=== PATIENT | female | born 1940 | race Caucasian/White ===

== ENCOUNTER 2022-09-06 10:38 | Emergency (ER) | payer OTHER ==
[~2022-09-06] VITALS: Ht 160 cm; Wt 63.5 kg
[2022-09-06 10:41] VITALS: BP_SYST 168
[2022-09-06] MEDS ORDERED: MORPHINE 4 MG INJ. 4 MG/ML VIAL IVP ONE (12:15)
[2022-09-06 12:40] LABS: BASOPHILS % (AUTO) 0.4 % (0.0-2.0); EOSINOPHILS % (AUTO) 0.7 % (0.0-4.0); HEMATOCRIT 39.8 % (36-48); HEMOGLOBIN 13.1 g/dL (12.0-16.0); LYMPHOCYTES # (AUTO) 0.9 K/uL (1.0-5.5); LYMPHOCYTES % (AUTO) 16.8 % (20.5-51.5); MEAN CORPUSCULAR HEMOGLOBIN 31 pg (27-31); MEAN CORPUSCULAR HGB CONC 33 % (32-36); MEAN CORPUSCULAR VOLUME 94 fL (79.0-98.0); MONOCYTES # (AUTO) 0.3 K/uL (0.0-1.0); MONOCYTES % (AUTO) 6.2 % (1.7-9.3); NEUTROPHILS % (AUTO) 75.9 % (40.0-70.0); PLATELET COUNT (AUTO) 98 K/uL (130-430); RED BLOOD CELL COUNT(AUTO) 4.23 MIL/uL (4.2-6.2); RED CELL DISTRIBUTION WIDTH 13.9 % (9.0-15.0); WHITE BLOOD COUNT (AUTO) 5.2 K/uL (4.8-10.8)
[2022-09-06 12:52] LABS: ANION GAP 9 (5-15); CALCIUM 9.3 mg/dL (8.4-11.0); CHLORIDE 106 mmol/L (98-107); CREATININE 0.85 mg/dL (0.55-1.30); GLUCOSE 93 mg/dL (70-99); UREA NITROGEN, BLOOD 30 mg/dL (8-21)
[2022-09-06 12:58] LABS: ALANINE AMINOTRANSFERASE 25 U/L (12-78); ALBUMIN 3.7 g/dL (3.4-4.8); ASPARTATE AMINOTRANSFERASE 33 U/L (10-37); TOTAL BILIRUBIN 0.6 mg/dL (0.0-1.0)
[2022-09-06] MEDS ORDERED: NAPR-1172 PO (14:05)
[2022-09-06 17:46] VITALS: BP_SYST 152
== END 2022-09-06 17:46 ==
LOC: SED 10:38
DX: M54.50 Low back pain, unspecified (principal); G89.29 Other chronic pain; Z79.899 Other long term (current) drug therapy; Z20.822 Contact with and (suspected) exposure to COVID-19
CPT/HCPCS: 99284; 96374; 72131; 87426; 80053; 85025; 84484; 36415; 93005; 76376; J2270

== ENCOUNTER 2023-01-22 04:28 | Emergency (ER) | payer OTHER ==
[~2023-01-22] VITALS: Ht 157.5 cm; Wt 59.0 kg
[~2023-01-22 04:28] MED LIST: NAPR-1172 PO
--- NOTE | 2023-01-22 04:33 | NUR ---
Patient to ER bed 5 to gown for evaluation. Side rails up. Report given to Berhane MESSINA.
--- NOTE | 2023-01-22 04:34 | NUR ---
ER at bedside examining patient.
[2023-01-22 04:35] VITALS: BP_SYST 141
--- NOTE | 2023-01-22 05:08 | NUR ---
Pt bib ambulance-bls from [facility], pt assisted to bed 5. Pt c/o depression and being lonely. Pt emotional and crying. Pt denies pain at this time. Pt denies N/V/D. Pt denies SOB and chest pain. Pt denies fever and chills. Safety measures in place.
--- NOTE | 2023-01-22 06:19 | NUR ---
ER Dr. Hager at bedside examining patient.
[2023-01-22 06:26] LABS: BILIRUBIN,URINE NEGATIVE (NEGATIVE); BLOOD, URINE NEGATIVE (NEGATIVE); CLARITY/URINE CLEAR (CLEAR); COLOR,URINE YELLOW (YELLOW); GLUCOSE,URINE NEGATIVE (NEGATIVE); KETONES,URINE NEGATIVE (NEGATIVE); LEUKOCYTE ESTERASE ,URINE 2+ (NEGATIVE); NITRITE, URINE NEGATIVE (NEGATIVE); PROTEIN URINE NEGATIVE (NEGATIVE); UROBILINOGEN,URINE 0.2 (0.2-1.0)
[2023-01-22 06:40] LABS: BACTERIA,URINE None Seen /HPF (None Seen); RBC,URINE 0-3 /HPF (0-3); WBC,URINE 0-3 /HPF (0-3)
[2023-01-22] MEDS ORDERED: HYDROcodone/ACETAMIN 7.5-325 MG TAB PO ONE (06:45)
[2023-01-22] MEDS ORDERED: IBUPROFEN 600 MG TABLET PO ONE (06:45)
--- NOTE | 2023-01-22 07:15 | NUR ---
Attempted to call [facility] at [phone] four times to advise them that patient will be sent to the facility via uber, no one answered.
--- NOTE | 2023-01-22 07:36 | NUR ---
Pt awake and alert sitting in chair, no s/s of discomfort noted. Endorsed pt and care to oncoming nurse ALDA De La Cruz.
--- NOTE | 2023-01-22 07:37 | NUR ---
Report received from Lisa from shift coordinator for continuity of care. Patient waiting for breakfast. Facility called.
--- NOTE | 2023-01-22 07:47 | NUR ---
Spoke with patient's daughter, Karissa, regarding patient in the ER, seen by physician, and pending discharge. Attempting to touch base with [facility].
--- NOTE | 2023-01-22 07:50 | NUR ---
[facility] [place]: [phone]
--- NOTE | 2023-01-22 08:16 | NUR ---
Just spoke with Jaylin, concrete block plant supervisor, regarding arranging transportation. Around 9:30 am is when transportation can be set up. Patient made aware.
[2023-01-22 09:04] VITALS: BP_SYST 134
--- NOTE | 2023-01-22 09:05 | NUR ---
Call Center Receptionist made aware of transportation needs. Patient made aware. Waiting in bed.
--- NOTE | 2023-01-22 09:27 | NUR ---
cigar making machine supervisor called for transportation. Awaiting authorization.
--- NOTE | 2023-01-22 10:07 | NUR ---
Patient escorted to front via wheelchair. [employer] ordered and [employer] outside waiting for patient. Patient respiration even and unlabored. No c/o pain. Ambulatory with steady gait one person assistance to vehicle. [employer] contract driver acknowledged patient and opened front door. Patient in vehicle safely with seatbelt on. No distress noted. Facility and patient's family aware of transportation back to place.
[2023-01-23] MEDS ORDERED: DULO60CA65 PO (08:58)
[2023-01-23] MEDS ORDERED: LISI10TA29 PO (08:58)
[2023-01-23] MEDS ORDERED: ESCI-6 PO (08:58)
== END 2023-01-22 09:04 | disposition home or self-care (01) ==
LOC: SED 04:28
DX: F32.A Depression, unspecified (principal); R30.0 Dysuria; E78.5 Hyperlipidemia, unspecified; Z79.899 Other long term (current) drug therapy
CPT/HCPCS: 81000; 99285

== ENCOUNTER 2023-01-23 01:58 | Emergency (ER) | payer OTHER ==
[~2023-01-23] VITALS: Ht 160 cm; Wt 72.6 kg
--- NOTE | 2023-01-23 02:00 | NUR ---
PT ALEXANDER FROM [facility] WITH NO COMPLAINT AT THIS TIME. PT DOES NOT WISH TO BE HERE AND REQUESTED TO GO BACK HOME. PER EMS PT WAS BEING UNCOOPERATIVE WITH STAFF. PT IS COOPERATIVE AND CALM HERE IN THE ER. PT HX WITH HLD AND EARLY ONSET DEMENTIA. VSS.
[2023-01-23 02:03] VITALS: BP_SYST 122
--- NOTE | 2023-01-23 02:03 | NUR ---
DR. MCCALLUM [place] [facility] [place]
--- NOTE | 2023-01-23 02:20 | NUR ---
Spoke to Geena at [facility], told her that resident would be heading back to facility. She stated that pt was having hallucinations and they do not have nurses on staff to manage PRNs, however she stated that the CHIEF PROCUREMENT OFFICER on the facilitys staff wanted her sent to ER. Charge nurse spoke to Geena and requested they follow up with PCP for resident.
--- NOTE | 2023-01-23 02:21 | NUR ---
LEFT A MESSAGE FOR [facility] AT [phone] NOTIFYING THEM THAT ONE OF THEIR RESIDENT IS BEING DISCHARGED BACK TO THEM.
[2023-01-23 02:25] VITALS: BP_SYST 122
--- NOTE | 2023-01-23 02:25 | NUR ---
Patient given written and verbal discharge instructions and verbalizes understanding. ER DR. MCCALLUM discussed with patient the results and treatment provided. Patient in stable condition. ID arm band removed. Patient educated on pain management and to follow up with PMD. Pain Scale 0. Opportunity for questions provided and answered. Medication side effect fact sheet provided.
[2023-01-23] MEDS ORDERED: DULO60CA65 PO (08:58)
[2023-01-23] MEDS ORDERED: LISI10TA29 PO (08:58)
[2023-01-23] MEDS ORDERED: ESCI-6 PO (08:58)
[2023-01-23] MEDS ORDERED: OLANZapine 2.5 MG TABLET PO SCH (13:00)
== END 2023-01-23 02:25 | disposition home or self-care (01) ==
LOC: SED 01:58
DX: R41.0 Disorientation, unspecified (principal); F03.90 Unspecified dementia, unspecified severity, without behavioral disturbance, psychotic disturbance, mood disturbance, and anxiety; E78.5 Hyperlipidemia, unspecified; Z79.899 Other long term (current) drug therapy
CPT/HCPCS: 99283

== ENCOUNTER 2023-01-23 08:00 | Inpatient (IN) | payer OTHER ==
[~2023-01-23] VITALS: Ht 160 cm; Wt 59.0 kg
[2023-01-23 08:21] VITALS: BP_SYST 139
[2023-01-23] MEDS ORDERED: ESCI-6 PO (08:58)
[2023-01-23] MEDS ORDERED: DULO60CA65 PO (08:58)
[2023-01-23] MEDS ORDERED: LISI10TA29 PO (08:58)
[2023-01-23 09:01] LABS: BASOPHILS % (AUTO) 0.2 % (0.0-2.0); EOSINOPHILS % (AUTO) 0.6 % (0.0-4.0); HEMATOCRIT 36.4 % (36-48); HEMOGLOBIN 11.8 g/dL (12.0-16.0); LYMPHOCYTES # (AUTO) 1.1 K/uL (1.0-5.5); LYMPHOCYTES % (AUTO) 21.2 % (20.5-51.5); MEAN CORPUSCULAR HEMOGLOBIN 27 pg (27-31); MEAN CORPUSCULAR HGB CONC 32 % (32-36); MEAN CORPUSCULAR VOLUME 82 fL (79.0-98.0); MONOCYTES # (AUTO) 0.5 K/uL (0.0-1.0); MONOCYTES % (AUTO) 9.9 % (1.7-9.3); NEUTROPHILS # (AUTO) 3.4 K/uL (1.8-7.7); NEUTROPHILS % (AUTO) 68.1 % (40.0-70.0); PLATELET COUNT (AUTO) 109 K/uL (130-430); RED BLOOD CELL COUNT(AUTO) 4.43 MIL/uL (4.2-6.2); RED CELL DISTRIBUTION WIDTH 21.3 % (9.0-15.0)
[2023-01-23 09:35] LABS: ACETAMINOPHEN < 1 ug/mL (1-30); ALCOHOL, BLOOD < 3 mg/dL (<10)
[2023-01-23 10:15] LABS: ANION GAP 8 (5-15); CHLORIDE 106 mmol/L (98-107); CREATININE 0.89 mg/dL (0.55-1.30); GLUCOSE 102 mg/dL (70-99); UREA NITROGEN, BLOOD 23 mg/dL (8-21)
[2023-01-23 10:20] LABS: ALANINE AMINOTRANSFERASE 29 U/L (12-78); ALBUMIN 3.7 g/dL (3.4-4.8); ASPARTATE AMINOTRANSFERASE 30 U/L (10-37); TOTAL BILIRUBIN 1.1 mg/dL (0.0-1.0)
[2023-01-23 11:00] VITALS: BP_SYST 142
[2023-01-23] MEDS ORDERED: ACETAMINOPHEN 325 MG TABLET PO PRN ×2 (12:45)
[2023-01-23] MEDS ORDERED: NALOXONE HCL 0.4 MG/ML AMP (NARCAN) IVP PRN ×2 (12:45)
[2023-01-23] MEDS ORDERED: HYDROcodone/ACETAMIN 10-325 MG TAB PO PRN (12:45)
[2023-01-23] MEDS ORDERED: ONDANSETRON HCL 4 MG/2 ML VIAL IVP PRN (12:45)
[2023-01-23] MEDS ORDERED: ESCITALOPRAM OXALATE 10 MG TABLET PO SCH (12:45)
[2023-01-23] MEDS ORDERED: HYDROcodone/ACETAMIN 5-325 MG TAB (NORCO/ VICODIN) PO PRN (12:45)
[2023-01-23] MEDS ORDERED: DULoxetine HCL 30 MG CAPSULE.DR (CYMBALTA) PO ONE (13:00)
[2023-01-23] MEDS ORDERED: NAPROXEN 250 MG TABLET PO ONE (13:00)
[2023-01-23] MEDS ORDERED: LISINOPRIL 10 MG TABLET (PRINIVIL) PO ONE (13:00)
[2023-01-23] MEDS ORDERED: CITALOPRAM HYDROBROMIDE 20 MG TABLET PO ONE (13:00)
[2023-01-23] MEDS: NORMAL SALINE 5 ML DISP.SYRIN IVF SCH ×2 (13:37→21:29)
[2023-01-23] MEDS: LORazepam 2 MG/ML VIAL IVP PRN (14:44)
[2023-01-23] MEDS ORDERED: HALOPERIDOL LACTATE 5 MG/ML VIAL IM PRN (14:45)
[2023-01-23 16:15] VITALS: BP_SYST 137
[2023-01-23] MEDS ORDERED: HALOPERIDOL 5 MG TABLET (HALDOL) PO PRN (17:00)
[2023-01-23 19:00] VITALS: BP_SYST 141
[2023-01-23 20:00] VITALS: BP_SYST 141
[2023-01-23] MEDS: NAPROXEN 250 MG TABLET PO SCH (20:08)
[2023-01-24] VITALS: BP_SYST 143
[2023-01-24 05:12] LABS: BASOPHILS % (AUTO) 0.4 % (0.0-2.0); EOSINOPHILS % (AUTO) 1.2 % (0.0-4.0); HEMATOCRIT 33.7 % (36-48); HEMOGLOBIN 10.9 g/dL (12.0-16.0); LYMPHOCYTES % (AUTO) 26.6 % (20.5-51.5); MEAN CORPUSCULAR HEMOGLOBIN 27 pg (27-31); MEAN CORPUSCULAR HGB CONC 32 % (32-36); MEAN CORPUSCULAR VOLUME 83 fL (79.0-98.0); MONOCYTES # (AUTO) 0.5 K/uL (0.0-1.0); MONOCYTES % (AUTO) 12.5 % (1.7-9.3); NEUTROPHILS # (AUTO) 2.2 K/uL (1.8-7.7); NEUTROPHILS % (AUTO) 59.3 % (40.0-70.0); PLATELET COUNT (AUTO) 89 K/uL (130-430); RED BLOOD CELL COUNT(AUTO) 4.05 MIL/uL (4.2-6.2); RED CELL DISTRIBUTION WIDTH 21.1 % (9.0-15.0); WHITE BLOOD COUNT (AUTO) 3.8 K/uL (4.8-10.8)
[2023-01-24] MEDS: NORMAL SALINE 5 ML DISP.SYRIN IVF SCH ×3 (05:15→22:00)
[2023-01-24 05:34] LABS: ALANINE AMINOTRANSFERASE 25 U/L (12-78); ALBUMIN 3.4 g/dL (3.4-4.8); ANION GAP 8 (5-15); ASPARTATE AMINOTRANSFERASE 33 U/L (10-37); CALCIUM 8.6 mg/dL (8.4-11.0); CHLORIDE 105 mmol/L (98-107); CREATININE 0.78 mg/dL (0.55-1.30); GLUCOSE 101 mg/dL (70-99); PHOSPHORUS 3.6 mg/dL (2.7-4.5); TOTAL BILIRUBIN 1.1 mg/dL (0.0-1.0); UREA NITROGEN, BLOOD 20 mg/dL (8-21)
[2023-01-24 08:00] VITALS: BP_SYST 147
[2023-01-24] MEDS: LORazepam 2 MG/ML VIAL IVP PRN (08:38)
[2023-01-24] MEDS: LISINOPRIL 10 MG TABLET (PRINIVIL) PO SCH (09:50)
[2023-01-24] MEDS: DULoxetine HCL 30 MG CAPSULE.DR (CYMBALTA) PO SCH (09:50)
[2023-01-24] MEDS: NAPROXEN 250 MG TABLET PO SCH ×2 (09:51→20:57)
[2023-01-24] MEDS: CITALOPRAM HYDROBROMIDE 20 MG TABLET PO SCH (09:51)
[2023-01-24 11:25] VITALS: BP_SYST 141
[2023-01-24 15:34] VITALS: BP_SYST 147
[2023-01-24 20:00] VITALS: BP_SYST 127
[2023-01-24] MEDS: QUEtiapine FUMARATE 25 MG TABLET PO SCH (20:58)
[2023-01-25] VITALS: BP_SYST 144
[2023-01-25] MEDS: LORazepam 2 MG/ML VIAL IVP PRN (00:06)
[2023-01-25 04:08] LABS: BASOPHILS % (AUTO) 0.2 % (0.0-2.0); EOSINOPHILS # (AUTO) 0.1 K/uL (0.0-0.4); EOSINOPHILS % (AUTO) 1.3 % (0.0-4.0); HEMATOCRIT 34.8 % (36-48); HEMOGLOBIN 11.3 g/dL (12.0-16.0); LYMPHOCYTES % (AUTO) 22.7 % (20.5-51.5); MEAN CORPUSCULAR HEMOGLOBIN 27 pg (27-31); MEAN CORPUSCULAR HGB CONC 33 % (32-36); MEAN CORPUSCULAR VOLUME 83 fL (79.0-98.0); MONOCYTES # (AUTO) 0.5 K/uL (0.0-1.0); MONOCYTES % (AUTO) 11.7 % (1.7-9.3); NEUTROPHILS # (AUTO) 2.7 K/uL (1.8-7.7); NEUTROPHILS % (AUTO) 64.1 % (40.0-70.0); PLATELET COUNT (AUTO) 81 K/uL (130-430); RED BLOOD CELL COUNT(AUTO) 4.22 MIL/uL (4.2-6.2); RED CELL DISTRIBUTION WIDTH 21.1 % (9.0-15.0); WHITE BLOOD COUNT (AUTO) 4.2 K/uL (4.8-10.8)
[2023-01-25 04:16] LABS: ANION GAP 10 (5-15); CALCIUM 8.6 mg/dL (8.4-11.0); CHLORIDE 104 mmol/L (98-107); CREATININE 0.84 mg/dL (0.55-1.30); GLUCOSE 99 mg/dL (70-99); UREA NITROGEN, BLOOD 17 mg/dL (8-21)
[2023-01-25] MEDS: NORMAL SALINE 5 ML DISP.SYRIN IVF SCH ×3 (06:00→21:51)
[2023-01-25 08:00] VITALS: BP_SYST 151
[2023-01-25] MEDS: NAPROXEN 250 MG TABLET PO SCH ×2 (08:42→21:51)
[2023-01-25] MEDS: CITALOPRAM HYDROBROMIDE 20 MG TABLET PO SCH (08:43)
[2023-01-25] MEDS: QUEtiapine FUMARATE 25 MG TABLET PO SCH ×2 (08:43→21:51)
[2023-01-25] MEDS: DULoxetine HCL 30 MG CAPSULE.DR (CYMBALTA) PO SCH (08:43)
[2023-01-25] MEDS: LISINOPRIL 10 MG TABLET (PRINIVIL) PO SCH (08:43)
[2023-01-25 11:39] VITALS: BP_SYST 148
[2023-01-25 18:21] VITALS: BP_SYST 124
[2023-01-25 20:00] VITALS: BP_SYST 155
[2023-01-26 01:25] VITALS: BP_SYST 115
[2023-01-26 05:47] LABS: BASOPHILS % (AUTO) 0.5 % (0.0-2.0); EOSINOPHILS # (AUTO) 0.1 K/uL (0.0-0.4); EOSINOPHILS % (AUTO) 1.9 % (0.0-4.0); HEMATOCRIT 35.9 % (36-48); HEMOGLOBIN 11.5 g/dL (12.0-16.0); LYMPHOCYTES # (AUTO) 0.9 K/uL (1.0-5.5); LYMPHOCYTES % (AUTO) 19.8 % (20.5-51.5); MEAN CORPUSCULAR HEMOGLOBIN 27 pg (27-31); MEAN CORPUSCULAR HGB CONC 32 % (32-36); MEAN CORPUSCULAR VOLUME 83 fL (79.0-98.0); MONOCYTES # (AUTO) 0.5 K/uL (0.0-1.0); MONOCYTES % (AUTO) 10.6 % (1.7-9.3); NEUTROPHILS # (AUTO) 2.9 K/uL (1.8-7.7); NEUTROPHILS % (AUTO) 67.2 % (40.0-70.0); PLATELET COUNT (AUTO) 82 K/uL (130-430); WHITE BLOOD COUNT (AUTO) 4.3 K/uL (4.8-10.8)
[2023-01-26] MEDS: NORMAL SALINE 5 ML DISP.SYRIN IVF SCH ×3 (06:07→22:00)
[2023-01-26 06:15] LABS: ANION GAP 9 (5-15); CALCIUM 8.5 mg/dL (8.4-11.0); CHLORIDE 106 mmol/L (98-107); CREATININE 0.67 mg/dL (0.55-1.30); GLUCOSE 100 mg/dL (70-99); UREA NITROGEN, BLOOD 27 mg/dL (8-21)
[2023-01-26 08:18] VITALS: BP_SYST 149
[2023-01-26] MEDS ORDERED: POTASSIUM CHLORIDE 20 MEQ TAB.PRT.SR PO ONE (10:30)
[2023-01-26 11:19] VITALS: BP_SYST 148
[2023-01-26] MEDS: LISINOPRIL 10 MG TABLET (PRINIVIL) PO SCH (13:21)
[2023-01-26] MEDS: DULoxetine HCL 30 MG CAPSULE.DR (CYMBALTA) PO SCH (13:21)
[2023-01-26] MEDS: NAPROXEN 250 MG TABLET PO SCH ×2 (13:22→22:00)
[2023-01-26] MEDS: QUEtiapine FUMARATE 25 MG TABLET PO SCH ×2 (13:23→22:00)
[2023-01-26] MEDS: CITALOPRAM HYDROBROMIDE 20 MG TABLET PO SCH (13:23)
[2023-01-26 15:00] VITALS: BP_SYST 141
[2023-01-26 20:00] VITALS: BP_SYST 132
[2023-01-26] MEDS ORDERED: OLANZapine 2.5 MG TABLET PO SCH (21:00)
[2023-01-27] VITALS: BP_SYST 138
[2023-01-27 05:36] LABS: BASOPHILS % (AUTO) 0.4 % (0.0-2.0); EOSINOPHILS # (AUTO) 0.1 K/uL (0.0-0.4); EOSINOPHILS % (AUTO) 2.8 % (0.0-4.0); HEMATOCRIT 38.5 % (36-48); HEMOGLOBIN 12.2 g/dL (12.0-16.0); LYMPHOCYTES # (AUTO) 0.9 K/uL (1.0-5.5); LYMPHOCYTES % (AUTO) 16.3 % (20.5-51.5); MEAN CORPUSCULAR HEMOGLOBIN 27 pg (27-31); MEAN CORPUSCULAR HGB CONC 32 % (32-36); MEAN CORPUSCULAR VOLUME 84 fL (79.0-98.0); MONOCYTES # (AUTO) 0.5 K/uL (0.0-1.0); MONOCYTES % (AUTO) 9.6 % (1.7-9.3); NEUTROPHILS # (AUTO) 3.7 K/uL (1.8-7.7); NEUTROPHILS % (AUTO) 70.9 % (40.0-70.0); PLATELET COUNT (AUTO) 96 K/uL (130-430); RED BLOOD CELL COUNT(AUTO) 4.59 MIL/uL (4.2-6.2); RED CELL DISTRIBUTION WIDTH 21.2 % (9.0-15.0); WHITE BLOOD COUNT (AUTO) 5.3 K/uL (4.8-10.8)
[2023-01-27 06:02] LABS: ANION GAP 9 (5-15); CALCIUM 8.5 mg/dL (8.4-11.0); CHLORIDE 105 mmol/L (98-107); CREATININE 0.71 mg/dL (0.55-1.30); GLUCOSE 110 mg/dL (70-99); UREA NITROGEN, BLOOD 28 mg/dL (8-21)
[2023-01-27] MEDS: NORMAL SALINE 5 ML DISP.SYRIN IVF SCH ×3 (06:35→22:05)
[2023-01-27 08:00] VITALS: BP_SYST 101
[2023-01-27] MEDS ORDERED: HALOPERIDOL 1 MG TABLET (HALDOL) PO PRN (08:30)
[2023-01-27] MEDS: NAPROXEN 250 MG TABLET PO SCH ×2 (09:00→22:02)
[2023-01-27] MEDS: LISINOPRIL 10 MG TABLET (PRINIVIL) PO SCH (09:00)
[2023-01-27] MEDS: CITALOPRAM HYDROBROMIDE 20 MG TABLET PO SCH (11:42)
[2023-01-27] MEDS: QUEtiapine FUMARATE 25 MG TABLET PO SCH ×2 (11:42→22:02)
[2023-01-27] MEDS: DULoxetine HCL 30 MG CAPSULE.DR (CYMBALTA) PO SCH (11:42)
[2023-01-27 12:05] VITALS: BP_SYST 107
[2023-01-27 16:29] VITALS: BP_SYST 125
[2023-01-27 17:41] VITALS: BP_SYST 125
[2023-01-27 20:00] VITALS: BP_SYST 101
[2023-01-28 01:08] VITALS: BP_SYST 106
[2023-01-28 12:06] LABS: FOLATE (FOLIC ACID) >20.0 ng/mL (>3.0)
[2023-01-28 13:07] LABS: ANTI NUCLEAR AB WITH REFLEX Negative (Negative)
== END 2023-01-28 01:43 | DRG 948 ==
LOC: SED 08:00 → SMU 08:30
PROVIDERS: ADMIT Preventive Medicine Preventive Medicine/Occupational Environmental Medicine; ATTEND Preventive Medicine Preventive Medicine/Occupational Environmental Medicine
PROC: 4A10X4Z Monitoring of Central Nervous Electrical Activity, External Approach (ICD-10-PCS; principal; 2023-01-24)
DX: R41.82 Altered mental status, unspecified (principal); D61.818 Other pancytopenia; F29 Unspecified psychosis not due to a substance or known physiological condition; E78.5 Hyperlipidemia, unspecified; I10 Essential (primary) hypertension; M19.90 Unspecified osteoarthritis, unspecified site; D64.9 Anemia, unspecified; R73.9 Hyperglycemia, unspecified; F32.A Depression, unspecified
CPT/HCPCS: 36415; 70450-TC; 71045; 76376; 80048; 80053; 82607; 82746; 83735; 83880; 84100; 84484; 85025; 85379; 86038; 95816; 97116-GP; 97530-GP; 99285; G0480; G0481; G0482; J1630; J2060